=== PATIENT | female | born 1985 | race Caucasian/White ===

== ENCOUNTER → 2021-10-30 12:59 | Outpatient (CLI) | payer BC, SELFPAY ==
--- NOTE | ~2021-10-30 | MR_ITS ---
EXAMINATION: MR ankle RT wo con DATE: 10/30/2021 13:40 INDICATION: Subluxing peroneal tendon TECHNIQUE: Magnetic resonance imaging (MRI) of the right ankle was performed without intravenous cont rast. Sequences included sagittal, coronal, and axial proton-density weighted fast spin echo without and with fat saturation. COMPARISON: None. FINDINGS: Medial ankle ligaments: Deep and superficial deltoid ligaments as well as the spring ligament are normal. Lateral ankle ligaments: The anterior and posterior inferior tibiofibular ligaments are normal. The anterior talofibular, calc aneofibular and posterior talofibular ligaments are normal. Tendons: Achilles tendon is normal. Minimal amount of fluid consistent with mild tenosynovitis along the peron eal tendon sheath. The peroneus longus and brevis tendons appear normal although there is a low-lying peroneus brevis myotendinous junction which extends approximately millimeters caudal to the level of the tip of the lateral malleolus. The tibialis anterior and extensor hallucis longus and extensor di gitorum longus tendons are normal. Additional mild tenosynovitis along the normal tibialis posterior tendon. The flexor digitorum longus and flexor hallucis longus tendons are normal. Plantar fascia: Plantar aponeurosis is normal. Bones/other: Bone alignment is normal. Mild osteoarthritis at the second tarsal metatarsal joint with mild subarti cular edema at the base of the second metatarsal. Marrow signal is otherwise normal with no fracture or pathologic marrow replacing process. Remaining joint spaces are normal. Fluid: Physiologic amount fluid in the joint spaces. There is a ganglion cyst appears to arise from the talo navicular joint which extends across the anteromedial margin of the head of the talus measuring 2.4 x 1.3 cm in extent and 3 mm in maximal thickness. IMPRESSION: 1. Mild peroneal tenosynovitis and low lying myotendinous junction of the peroneus brevis tendon. 2. Mild osteoarthritis at the second tarsal metatarsal joint with mild reticular edema at the base of the second metatarsal. 3. Mild tibialis posterior tenosynovitis. Reviewed, dictated and finalized at location B. IMPRESSION: 1. Mild peroneal tenosynovitis and low lying myotendinous junction of the peron eus brevis tendon. 2. Mild osteoarthritis at the second tarsal metatarsal joint with mild reticula r edema at the base of the second metatarsal. 3. Mild tibialis posterior tenosynovitis.
== END ==
PROVIDERS: Visit Provider Podiatrist Foot & Ankle Surgery
DX: M76.71 Peroneal tendinitis, right leg (principal); M65.871 Other synovitis and tenosynovitis, right ankle and foot; M19.071 Primary osteoarthritis, right ankle and foot; M79.89 Other specified soft tissue disorders
CPT/HCPCS: 73721

== ENCOUNTER → 2022-12-16 10:46 | Outpatient (CLI) | payer BC, SELFPAY ==
--- NOTE | ~2022-12-16 | XR_ITS ---
XR thoracic spine 2V DATE: 12/16/2022 11:48 INDICATION: Neck pain, mid back pain TECHNIQUE: AP, lateral, swimmer views COMPARISON: 03/01/2010 thoracic spine FINDINGS: Slight scoliosis. No fracture or dislocation or bone destruction. The thoracic pedicles are intact. No paraspinal soft tissue thickening. IMPRESSION: Slight scoliosis; otherwise negative Reviewed, dictated and finalized at location L.
--- NOTE | ~2022-12-16 | XR_ITS ---
XR cervical spine 4-5V DATE: 12/16/2022 11:48 INDICATION: Neck, mid back pain. Headache. TECHNIQUE: Standing AP, open-mouth, lateral and standing flexion and extension lateral views COMPARISON: 03/01/2010 cervical spine FINDINGS: There is chronic reversal cervical curvature, also present on 03/01/2020. C1 and C2 are normally aligned and the odontoid process is intact. No fracture or dislocation or lock ed facet or prevertebral soft tissue swelling is detected. Cervical interspaces are well preserved. IMPRESSION: Reversal of cervical curvature, chronic Reviewed, dictated and finalized at location L.
== END ==
PROVIDERS: PCP Chiropractor; Visit Provider Chiropractor
DX: M54.2 Cervicalgia (principal); R51.9 Headache, unspecified; M43.8X2 Other specified deforming dorsopathies, cervical region; M54.6 Pain in thoracic spine; M41.84 Other forms of scoliosis, thoracic region
CPT/HCPCS: 72050; 72070

== ENCOUNTER 2024-05-09 08:03 | Outpatient (CLI) | payer BC, SELFPAY ==
--- NOTE | ~2024-05-09 | MR_ITS ---
MRI of the right ankle Clinical history: Flexor tendon rupture Technique: Coronal proton-density and proton-density fat-sat images, axial proton-density and proton- density fat-sat images, and sagittal proton-density and proton-density fat-sat images were acquired. COMPARISON: 10/30/2021 Findings: Syndesmotic ligaments are intact. Anterior and posterior talofibular ligaments, and calcane ofibular ligament are intact. Deltoid ligament intact. Medial flexor tendons, peroneal tendons, anterior extensor tendons, and Achilles tendon are intact. No osteochondral lesion of the talar dome. There is minimal degenerative change at the second TMT candida nt. Remaining bone marrow signals and joint spaces are intact. No joint effusion. Plantar fascial intact. No soft tissue mass or fluid collection seen. Impression: No acute abnormality. Minimal degenerative change of the second TMT joint. Reviewed, dictated and finalized at [facility]. [employer] Impression: No acute abnormality. Minimal degenerative change of the second TMT joint.
== END 2024-05-09 08:04 | disposition home or self-care (01) ==
LOC: MICIMG 08:05
PROVIDERS: PCP Podiatrist Foot & Ankle Surgery; Visit Provider Podiatrist Foot & Ankle Surgery
DX: M65.871 Other synovitis and tenosynovitis, right ankle and foot (principal); M76.71 Peroneal tendinitis, right leg; M66.371 Spontaneous rupture of flexor tendons, right ankle and foot; S93.491S Sprain of other ligament of right ankle, sequela; X58.XXXS Exposure to other specified factors, sequela
CPT/HCPCS: 73721

== ENCOUNTER 2024-06-01 13:31 | Outpatient (CLI) | payer BC, SELFPAY ==
--- NOTE | 2024-06-01 | ECG_ITS ---
Test Date: 2024-06-01 14:02:53 Measurements Intervals Winder Rate: 73 P: 42 ID: [id number] QRS: 3 QRSD: 91 T: 8 QT: 351 QTc: 389 Interpretive Statements SINUS RHYTHM No previous ECG available for comparison Electronically Signed On 06-04-2024 15:06:01 RE ETCHER by Kishan Perez M.D.
[2024-06-01 15:31] LABS: Alanine Aminotransferase 14 U/L (6-35); Albumin Level 4.1 g/dL (3.5-5.1); Alkaline Phosphatase 58 U/L (38-126); Anion Gap 2 mmol/L (4-12); Aspartate Amino Transferase 23 U/L (14-36); Bilirubin,Total 0.3 mg/dL (0.2-1.3); Blood Urea Nitrogen 17 mg/dL (7-17); Carbon Dioxide 27 mmol/L (22-30); Chloride 108 mmol/L (98-107); Estimated Glomerular Filt Rate > 60; Glucose 99 mg/dL (65-110); Sodium 137 mmol/L (137-145)
== END 2024-06-01 13:32 | disposition home or self-care (01) ==
PROVIDERS: PCP Podiatrist Foot & Ankle Surgery; Visit Provider Podiatrist Foot & Ankle Surgery
DX: Z01.818 Encounter for other preprocedural examination (principal)
CPT/HCPCS: 36415; 80053; 93005